=== PATIENT | male | born 1985 | race Native Hawaiian/Other Pacific Islander ===

== ENCOUNTER 2018-05-10 20:40 | Emergency (ER) | payer SELFPAY ==
[2018-05-10 20:48] VITALS: BP 147/87
[2018-05-11] MEDS ORDERED: FUL-GLO OP ONE ×2 (00:48→00:49)
[2018-05-11] MEDS ORDERED: TETRACAINE 0.5% ONE (00:49)
[2018-05-11] MEDS ORDERED: TETRACAINE 0.5% OU ONE (00:49)
[2018-05-11] MEDS ORDERED: PERCOCET 5/325 ONE (01:47)
[2018-05-11] MEDS ORDERED: PERCOCET 5/325 PO ONE (01:49)
[2018-05-11] MEDS ORDERED: BOOSTRIX IM ONE ×2 (02:13→02:18)
--- NOTE | 2018-05-11 02:15 | Emergency Department Report ---
ED Eye Problem HPI - General Chief complaint: Eye Problems Stated complaint: POSS PINK EYE Time Seen by Provider: 05/11/18 02:10 Source: patient Mode of arrival: Ambulatory Limitations: Language Barrier - History of Present Illness Initial comments: 32-year-old male comes to the emergency room report that he had dropped a glass bottle last night and he believes he maybe got a piece of glass in his right eye. Patient reports right eye is red and reports pain at 10 out of 10. Patient reports that this happened on Friday night not sure of the time. Patient has not taken anything for pain all day. Patient reports no known drug allergies has no past medical history and currently takes no medications on a daily basis. MD chief complaint: eye pain, eye redness -: days(s) (1) Location: right eye Place: home Eye Symptoms: redness, pain Severity: severe Severity scale (0 -10): 10 If Pain, Quality: sharp, throbbing Consistency: constant Associated Symptoms: headache Treatments Prior to Arrival: none - Related Data Previous Rx's Medication Instructions Recorded Last Taken Type Erythromycin [Erythromycin Ophth 1 applic OD QID #1 tube 05/11/18 Unknown Rx Oint] HYDROcodone/APAP 5-325 [[facility] [place] 1 each PO Q6HR PRN #12 tablet 05/11/18 Unknown Rx 5/325] Ibuprofen [Motrin 800 MG tab] 800 mg PO Q8HR PRN #15 tablet 05/11/18 Unknown Rx Allergies Allergy/AdvReac Type Severity Reaction Status Date / Time No Known Allergies Allergy Verified 05/11/18 00:53 ED Review of Systems ROS: Stated complaint: POSS PINK EYE Other details as noted in HPI Comment: All other systems reviewed and negative Eyes: eye pain (right eye) ED Past Medical Hx - Past Medical History Previous Medical History?: No - Surgical History Past Surgical History?: No - Social History Smoking Status: Never Smoker - Medications Home Medications: Home Medications Medication Instructions Recorded Confirmed Last Taken Type Erythromycin [Erythromycin Ophth 1 applic OD QID #1 tube 05/11/18 Unknown Rx Oint] HYDROcodone/APAP 5-325 [[facility] 1 each PO Q6HR PRN #12 tablet 05/11/18 Unknown Rx 5/325] Ibuprofen [Motrin 800 MG tab] 800 mg PO Q8HR PRN #15 tablet 05/11/18 Unknown Rx ED Physical Exam - General Limitations: Language Barrier General appearance: alert - Head Head exam: Present: atraumatic - Eye Eye exam: Present: EOMI Pupils: Present: other (flourscien exam performed with uptake to the cornea at approximately between 5 and 6 as well as between 1 and 3 o'Clock) - Expanded Eye Exam Expanded Eyelids: Normal Inspection: Right Pupils: Regular, Round: Right, Reactive: Right Sclera/Conjunctival: Injection: Right - ENT ENT exam: Present: mucous membranes moist ED Course Vital Signs 05/10/18 05/10/18 05/10/18 20:39 20:48 20:57 Temperature 99.0 F 99 F 99.1 F Pulse Rate 72 72 75 Respiratory 16 16 16 Rate Blood Pressure 147/87 147/87 Blood Pressure 147/87 [Right] O2 Sat by Pulse 97 97 Oximetry ED Medical Decision Making - Medical Decision Making Patient has been evaluated by this provider in fast track Percocet given for pain management Patient will be discharged home with erythromycin ophthalmic ointment to apply 4 times a day. He is to do this for 7 days. Patient be discharged home on ibuprofen and [place] 5/325 g every 6 hours when necessary Critical care attestation.: If time is entered above; I have spent that time in minutes in the direct care of this critically ill patient, excluding procedure time. ED Disposition Clinical Impression: Abrasion, corneal Qualifiers: Encounter type: initial encounter Laterality: right Qualified Code(s): S05.01XA - Injury of conjunctiva and corneal abrasion without foreign body, right eye, initial encounter Disposition: TO HOME OR SELFCARE Is pt being admited?: No Does the pt Need Aspirin: No Condition: Stable Instructions: Corneal Abrasion (ED) Additional Instructions: Complete antibiotics pain medication as needed pleased to not operate heavy machinery while taking [place]. 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 Informed them that she had been in the emergency room. Prescriptions: Erythromycin [Erythromycin Ophth Oint] 1 applic OD QID #1 tube HYDROcodone/APAP 5-325 [[facility] [place] 5/325] 1 each PO Q6HR PRN #12 tablet PRN Reason: Pain Ibuprofen [Motrin 800 MG tab] 800 mg PO Q8HR PRN #15 tablet PRN Reason: Pain , Severe (7-10) Referrals: PRIMARY CARE, [Primary Care Provider] - 3-5 Days [facility] [Provider Group] - 3-5 Days [facility] [Provider Group] - 3-5 Days DIEGO JUAN MD [Staff Physician] - 3-5 Days Forms: Work/School Release Form(ED) Print Language: LATVIAN
== END 2018-05-11 02:35 | disposition home or self-care (01) ==
LOC: ED 20:40
DX: S05.01XA Injury of conjunctiva and corneal abrasion without foreign body, right eye, initial encounter (principal); W25.XXXA Contact with sharp glass, initial encounter; Y93.89 Activity, other specified; Y92.009 Unspecified place in unspecified non-institutional (private) residence as the place of occurrence of the external cause; Y99.8 Other external cause status
CPT/HCPCS: 90471; 90715; 99283